=== PATIENT | male | born 1955 | race Native Hawaiian/Other Pacific Islander ===

== ENCOUNTER 2020-06-14 21:23 | Emergency (ER) | payer OTHER ==
[~2020-06-14] VITALS: Ht 182.9 cm; Wt 100.2 kg
[~2020-06-14 21:23] MED LIST: ALLO300T23 PO; ALPHAGAN P0.1 % OP; AZOPT OPTH; CYANOCOBALAMIN IM; ESCI10TA PO; ESCITALOPRAM PO; GEMFIBROZIL PO; GLIM4TAB PO; LANTUS SC; LEVO0.0723 PO; LORA1TAB17 PO; METFORMIN PO; MONT10TA PO; NIACIN ER500 M1 PO; PALI3TAB PO; POTA20TA4 PO; QUET100T2 PO; QUETIAPINE200 MG PO; TAMS0.4C PO; ZANTAC300 MG PO; [UNRECOGNIZED DRUG - OTHER] PO; [UNRECOGNIZED DRUG - OTHER] PO
[2020-06-14 22:56] LABS: PLATELET COUNT 180 K/uL (142-355)
[2020-06-14 23:07] LABS: POTASSIUM 3.6 mmol/L (3.6-5.2)
[2020-06-14 23:30] VITALS: BP 146/80; TEMP 98.4
[2020-06-15] MEDS ORDERED: [UNRECOGNIZED DRUG - CODE] PO (00:47)
[2020-06-15] MEDS ORDERED: PIOG30TA PO (00:48)
[2020-06-15] MEDS ORDERED: POTA20TA4 PO (00:49)
[2020-06-15] MEDS ORDERED: ESCITALOPRAM10 MG PO (00:50)
[2020-06-15] MEDS ORDERED: INSU300I ID (00:53)
[2020-06-15] MEDS ORDERED: METFORMIN HYDR850 MG PO (00:54)
[2020-06-15] MEDS ORDERED: TYLENOL325 MG PO (00:58)
[2020-06-15] MEDS ORDERED: MAGNSUS68 PO (00:59)
[2020-06-15] MEDS ORDERED: BISA10SU8 RE (01:01)
[2020-06-15] MEDS ORDERED: FLEET ENEMA RE (01:05)
[2020-06-15] MEDS ORDERED: QUETIAPINE300 MG PO (01:06)
== END 2020-06-14 23:30 | disposition still patient (30) ==
LOC: ED 21:23
PROVIDERS: Emergency Medicine Emergency Medical Services
DX: F20.89 Other schizophrenia (principal); Z11.59 Encounter for screening for other viral diseases; Z04.6 Encounter for general psychiatric examination, requested by authority
CPT/HCPCS: 36415; 80053; 81000; 85027; 87635; 93005; 99285; U0003